=== PATIENT | male | born 1980 | race Caucasian/White ===

== ENCOUNTER 2017-04-07 08:21 | Day surgery (SDC) | payer BC, OTHER ==
[2017-04-07] MEDS ORDERED: Sodium Chloride 0.9% 5 ML Syringe FLUSH PRN (08:30)
[2017-04-07] MEDS ORDERED: Lactated Ringers 1,000 ML IV SCH (08:30)
[2017-04-07] MEDS ORDERED: Propofol 200 MG/20 ML SDV ONE (09:06)
[2017-04-07] MEDS ORDERED: EPINEPHrine 1:10,000 1 MG/10 ML Syringe ONE (09:56)
[2017-04-07] MEDS ORDERED: Propofol 200 MG/20 ML SDV IV ONE (10:01)
--- NOTE | 2017-04-07 10:24 | PCM.OPNOTE ---
- General Post-Op/Procedure Note Date of Surgery/Procedure: 04/07/17 Operative Procedure(s): Upper GI endoscopy with polypectomy Findings: Mild antral gastritis and a small polyp of the greater curvature was noted. The polyp was removed using a hot biopsy forceps. Anesthesia Technique: MAC Primary Surgeon: Cheryle Piper Complications: None Condition: Good Free Text/Narrative:: INFORMED CONSENT: Patient is here today for elective upper GI endoscopy. All aspects of this procedure have been discussed with the patient. All possible complications also, including possibility of perforation, infection, pain, bleeding, numbness of the throat, swallowing difficulty and unknown complications. In the event of perforation the patient may need surgical exploration to repair the defect. The patient understands fully well. Patient did not have any further questions for me at the end of my interview. The patient wishes for me to proceed. INSTRUMENT USED: Video gastroscope ANESTHESIA: [MAC] ASA CLASSIFICATION: [2] PROCEDURE PERFORMED: [Upper gastrointestinal endoscopy and polypectomy] PHARYNX: Normal. ESOPHAGUS: Normal. Proximal: Normal. Middle: Normal. Lower: Normal. GE Junction: Normal. STOMACH: Normal. Cardia: Normal. Fundus: Normal. Lesser Curvature: Normal. Greater Curvature: A small gastric polyp was seen and removed using the hot biopsy forceps.. Antrum: Mild gastritis is observed.. Pylorus: Normal. DUODENUM: Normal. First Part: Normal. Second Part: Normal. Third Part: Normal. RETROFLEXION: Normal. BIOPSY: None. TOLERANCE: Excellent. COMPLICATIONS: None. Final diagnosis: Mild antral gastritis and a small polyp of the greater curvature. Polypectomy performed.
== END 2017-04-07 11:30 | disposition home or self-care (01) ==
LOC: KA.SDS 08:21
PROVIDERS: ATTEND Family Medicine
DX: K31.7 Polyp of stomach and duodenum (principal); K29.50 Unspecified chronic gastritis without bleeding; K21.0 Gastro-esophageal reflux disease with esophagitis; F41.1 Generalized anxiety disorder; I10 Essential (primary) hypertension
CPT/HCPCS: 43250; J2704; J7120